=== PATIENT | male | born 1935 | race Caucasian/White ===

== ENCOUNTER 2017-11-23 09:01 | Day surgery (SDC) | payer OTHER, BC ==
[2017-11-18 12:41] VITALS: BMI 24.4
[2017-11-23] MEDS ORDERED: oxyCODONE HCL 10 MG SUSTAINED ACTING TABLET PO STA (09:29)
[2017-11-23] MEDS ORDERED: THROMBIN (BOVINE) 5,000 UNIT VIAL TP ONE (09:57)
[2017-11-23] MEDS ORDERED: methylPREDNISolone ACET (DEPO) 40 MG/1 ML VIAL ONE (09:57)
[2017-11-23] MEDS ORDERED: LIDOCAINE 1%/EPI 1:100000 (20 ML MULTI DOSE VIAL) ONE ×2 (09:58→11:36)
[2017-11-23 10:04] LABS: INR 1.24 (0.82-1.09); PROTHROMBIN TIME (PATIENT) 13.8 SEC (10.2-13.0)
--- NOTE | 2017-11-23 10:33 | HP ---
History & Physical Update - History History: No Change - Physical Physical: No Change - Assessment Assessment: No Change - Plan Plan: No Change
[2017-11-23] MEDS ORDERED: ceFAZolin SODIUM 1 GM VIAL ONE (10:52)
[2017-11-23] MEDS ORDERED: DEXAMETHASONE SOD PHOSPHATE 4 MG/1 ML VIAL ONE (11:23)
[2017-11-23] MEDS ORDERED: ONDANSETRON 4 MG/2 ML VIAL ONE (11:23)
[2017-11-23] MEDS ORDERED: KETAMINE HCL 200 MG/20 ML VIAL ONE (11:35)
--- NOTE | 2017-11-23 13:10 | OP ---
Operative Note - Note: Operative Date: 11/23/17 Pre-Operative Diagnosis: L5/S1 spinal stenosis with radiculopathy Operation: L5/S1 bilateral laminectomy Post-Operative Diagnosis: Same as Pre-op Surgeon: Alexi Saab Sleep Technician: Raheem Levy Anesthesiologist/HIGHWAY MAINTENANCE SUPERVISOR: Cheo Monteiro ([facility]) Anesthesia: Spinal Estimated Blood Loss (mls): 20 Fluid Volume Replaced (mls): 1,100 Operative Report Dictated: Yes
--- NOTE | 2017-11-23 13:11 | SURG ---
Surgery Display Manager Note Display Manager: Raheem Levy PA-C Date of Service: 11/23/17 Diagnosis: L5/S1 spinal stenosis with radiculopathy Procedure: L5/S1 bilateral laminectomy I was present for the entirety of the operative procedure. For further detail, please refer to operative report. Visit type - Case Type Case Type: Scheduled Admission - New patient This patient is new to me today: Yes Date on this admission: 11/23/17
[2017-11-23] MEDS ORDERED: oxyCODONE HCL 5 MG TABLET PO PRN (13:48)
[2017-11-23] MEDS ORDERED: ONDANSETRON 4 MG/2 ML VIAL IVPUSH PRN (13:48)
[2017-11-23] MEDS ORDERED: LACTATED RINGERS SOLUTION 1,000 ML IV SCH (14:00)
[2017-11-23 14:26] VITALS: TEMP 97.5
[2017-11-23 17:08] VITALS: BP 137/79; PULSE 81
--- NOTE | 2017-11-23 21:57 | OP ---
DATE OF OPERATION: 11/23/2017 PREOPERATIVE DIAGNOSIS: Spinal stenosis at L5-S1. POSTOPERATIVE DIAGNOSIS: Spinal stenosis at L5-S1. PROCEDURE PERFORMED: Laminectomy at L5-S1. SURGEON: Alexi Saab MD SENIOR PROGRAM ANALYST: QUINTIN Fraser ESTIMATED BLOOD LOSS: 50 mL INTRAVENOUS FLUIDS: Per Anesthesia. ANESTHESIA: Spinal/TLIP. COMPLICATIONS: None. DISPOSITION: Patient brought to the PACU in stable condition. INDICATIONS FOR SURGERY: The patient is an 82-year-old gentleman who has been suffering from pain from his back down his legs. X-rays and MRI were completed which noted that he had spinal stenosis at L5-S1. He had gone through an exhaustive course of treatment for this, which included medications, physical therapy as well as injections. Unfortunately, his pain continued to persist despite all this. At this point, risks, benefits, and alternatives were discussed, and the patient consented to surgery. DESCRIPTION OF PROCEDURE: Patient was brought to the operating room by the Anesthesia staff. After appropriate patient identification was performed, spinal anesthesia was given as well as a TLIP. Patient was placed prone onto the Issac frame with all areas of bony prominences well padded at this time. Two needles were placed into his back to zenaida off the L5-S1 segment. X-ray was taken to confirm this as correct. Guffey were removed, and 10 mL of lidocaine with epinephrine were injected in his back at this time. His back was prepped and draped in a sterile manner. A timeout was completed. An incision was made from the top of L5 down to the bottom of S1. Dissection was carried down to the fascia. Fascia was then split open at this time, and appropriate retractors were then placed in. A spinal needle was placed onto the L5 lamina. An x-ray was taken to confirm this as the L5-S1 level. Needle was removed, and the microscope was brought in. The interspinous ligament at L5-S1 was removed. Portions of the L5-S1 spinous process and lamina were removed. A complete decompression was performed such that by the end of the procedure the S1 nerve root appeared to be well decompressed. All bleeding was well controlled at this time. Steroid was placed over the nerve root. FloSeal was placed over that. The fascia was closed with a No. 1 Vicryl suture. Subcutaneous tissues were closed with 2-0 Vicryl suture. Skin was closed with 3-0 Monocryl suture. Dermabond was applied. Steri-Strips were applied. A sterile dressing was applied. Patient was placed supine on the OR bed and brought to the PACU in stable condition. Scooter STRANGE/[id number]
== END 2017-11-23 17:10 | disposition home or self-care (01) ==
LOC: FASU 09:01
PROVIDERS: ATTEND Orthopaedic Surgery Orthopaedic Surgery of the Spine
PROC: 01NB0ZZ Release Lumbar Nerve, Open Approach (ICD-10-PCS; principal; 2017-11-23 11:34)
DX: M48.07 Spinal stenosis, lumbosacral region (principal)
CPT/HCPCS: 36415; 72100-TC; 85610; 94760